=== PATIENT | female | born 1955 | race Caucasian/White ===

== ENCOUNTER → 2022-10-16 10:44 | Outpatient (CLI) | payer MEDICARE, OTHER, SELFPAY ==
--- NOTE | 2022-10-16 | DI.CT.S_ITS ---
PROCEDURE: CT CHEST HIGH RESOLUTION INDICATIONS: Subacute cough TECHNIQUE: Noncontrast 1.0 and 5.0 mm thick contiguous axial sections from the pulmonary apex to the posterior costophrenic angles, with 7 mm thick coronal and sagittal MIP reformats. 1 mm thick dynamic expiratory images acquired through the upper, mid, and lower lungs. 1.0 mm thick axial sections acquired from the aylin to the posterior costophrenic angles in the prone end-inspiration position. For radiation dose reduction, the following was used: automated exposure control, adjustment of mA and/or kV according to patient size. COMPARISON: None. FINDINGS: Lungs: No significant reticulation or ground-glass opacity. No honeycombing identified. No consolidation or pleural effusion. No definite bronchiectasis. Few foci of peripheral airways mucous plugging are present. No definite air trapping on expiratory images. Mediastinum: No pericardial effusion. Thoracic aorta and central pulmonary arteries are normal in size. Esophagus is normal in caliber. Bones and chest wall: No suspicious bony lesions. No vertebral body compression fractures. Probable small sebaceous cyst anterior left paramidline chest wall at the level of the lower sternum. Abdomen: Visualized upper abdominal solid organs and bowel loops appear normal. IMPRESSION: 1. No definite CT evidence of interstitial lung disease. 2. Scattered foci of peripheral airways mucous plugging are present. Dictated by: Ryan Driscoll M.D. on 10/16/2022 at 12:24 Approved by: Ryan Driscoll M.D. on 10/16/2022 at 12:39
== END ==
PROVIDERS: Referring Provider Internal Medicine Pulmonary Disease; Visit Provider Internal Medicine Pulmonary Disease
DX: R05.2 Subacute cough (principal)
CPT/HCPCS: 71250

== ENCOUNTER → 2022-10-21 15:54 | Outpatient (CLI) | payer MEDICARE, OTHER, SELFPAY ==
--- NOTE | 2022-10-28 08:55 | PM.PFT.1 ---
Pulmonary Function Test Referral & Results Date Patient Seen: 10/21/22 Results: The spirometry demonstrates an FVC of 3.02 L which is 92% of predicted. The FEV1 was measured at 2.09 L which is 83% of predicted. The FEV1/FVC ratio was 69 which is 89% of predicted. Interpretation: This study which was done as forced spirometry only demonstrates probably normal forced spirometry. There may be a minimal reduction FEV1 suggesting the possibility of minimal obstructive lung disease however FEV1/FVC ratio is preserved. Shape of flow volume loop does support the presence of some degree of obstructive lung disease Clinical correlation suggested
== END ==
PROVIDERS: Referring Provider Internal Medicine Pulmonary Disease; Visit Provider Internal Medicine Pulmonary Disease
DX: R05.2 Subacute cough (principal); J98.8 Other specified respiratory disorders
CPT/HCPCS: 94010